=== PATIENT | male | born 1945 | race Caucasian/White ===

== ENCOUNTER 2022-07-23 12:11 | Emergency (ER) | payer MEDICARE | END 2022-07-23 13:48 | disposition home or self-care (01) | LOC: MADERS 12:11 | DX: S01.81XA Laceration without foreign body of other part of head, initial encounter (principal); S40.812A Abrasion of left upper arm, initial encounter; E78.00 Pure hypercholesterolemia, unspecified; I10 Essential (primary) hypertension; W18.30XA Fall on same level, unspecified, initial encounter | CPT/HCPCS: 12011; 70450; 70486; 72125 ==